=== PATIENT | male | born 1970 | race Caucasian/White ===

== ENCOUNTER 2018-10-11 13:25 | Inpatient (IN) | payer BC, OTHER ==
[~2018-10-11] VITALS: Ht 175.3 cm; Wt 83.9 kg
[~2018-10-11 13:25] MED LIST: CIPRO500 MG PO; FLAGYL500 MG PO; ZOLOFT100 MG PO
[2018-10-11 16:20] VITALS: BP 134/88
--- NOTE | 2018-10-11 17:43 | NUR ---
PT DIRECT ADMIT TO THE UNIT FORM DR PAGAN OFFICE - ADMITTED WITH DIVERTICULITIS. PT ORIENTED TO ROOM AND BEDSPACE - FOLDER GIVEN IN REGARDS TO HOSPITAL AND MENU. IV STARTED IN LEFT FA - FLUIDS AND IV AB'S GIVEN ORDERED. PATIENT WITH MIN PAIN AT THE PRESENT TIME RATE @ 2. NO CO'S OF NAUSEA. PATIENT UP AD KARENA IN ROOM - PILAR CLEAR LIQUIDS. NO CO'S AT THE PRESENT TIME.
[2018-10-11 23:39] VITALS: BP 110/64
[2018-10-12 03:11] VITALS: BP 104/56
[2018-10-12 04:59] LABS: MCHC 34.1 g/dL (28.0-37.0); MCV 96.9 fL (80.0-100.0); RBC 4.54 mil/uL (4.50-6.00); RDW 13.1 % (10.5-14.5); WBC 13.1 thou/uL (4.0-11.0)
[2018-10-12 05:09] LABS: CALCIUM 8.9 mg/dL (8.5-10.1); CREATININE 0.7 mg/dL (0.7-1.3); POTASSIUM 4.2 mmol/L (3.5-5.1)
--- NOTE | 2018-10-12 05:34 | NUR ---
ASSUMED PT CARE AT 1900 WITH NO SIGN OF DISTRESS NOTED IN PT. PT IS ALERT AND ORIENTED. ASSESSMENT DONE AND CHARTED. PT IS COMPLAINS OF ABDOMINAL PAIN. PAIN MEDS ADMINISTERED TO PT. SCHEDULED MEDS ADMINISTERED TO PT. NO SIGN OF DISTRESS NOTED IN PT. DENIES ANY FURTHER NEEDS AT THIS TIME.
[2018-10-12 07:07] VITALS: BP 100/50
--- NOTE | 2018-10-12 11:05 | H ---
[facility] [place] [address] HISTORY AND PHYSICAL Name: SHANIQUE AREVALO Room #: 208-P ADM IN M.R.#: [id number] Admission: 10/11/18 ������������������ Attend Phys: Jorge Bhatia MD Discharge: ������������������ Date of : 72 Report #: [id number] THIS REPORT FOR: //name// CC: Jorge Wallace DATE OF SERVICE: 10/11/2018 ADMITTING DIAGNOSIS: Acute diverticulitis, complicated with small abscess formation. HISTORY OF PRESENT ILLNESS: The patient is a 48-year-old, who for the last couple of weeks has been having abdominal pain. The patient was seen in the hospital in 04/2015 for diverticulitis. The patient, a couple of weeks ago, fell ill and was having pain more on the right lower side of the abdomen and then it moved around to the left side. Apparently, other people around him had stomach issue, so he thought that this was flu-like illness. The patient yesterday experienced increased pain in the left lower quadrant that was sharp in nature. No nausea, no vomiting. He did feel feverish, but did not have actual fever, no chills. The patient's bowels are looser. Last bowel movement was this morning. He is having pressure feeling and swelling in the lower part of the abdomen. The patient has been eating pretty well. No change in his appetite. He has never had a colonoscopy. There is family history of diverticulitis. Both his father and brother have had to have colon resection. The patient's CAT scan was done yesterday, which showed a pericolonic collection of 2.4 cm. I reviewed the film and I do not think it is a large diverticulum. I think it is extraluminal fluid with gas consistent with a small abscess. This is posteriorly, so likely in the retroperitoneum and sealed off. Because of the nature of the complicated attack, the patient is recommended to be hospitalized and have IV antibiotic treatment. PAST MEDICAL HISTORY: Healthy. He did have a previous attack 4 years ago. ALLERGIES: He is not allergic to anything. MEDICATIONS: He is not on any medication. No other history family history besides diverticular disease. The patient denies any heart, lung, diabetes, high blood pressure, kidney or liver disease. 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 He smokes 5-10 cigarettes a day and drinks 3-4 beers a day. REVIEW OF SYSTEMS: Unremarkable. PHYSICAL EXAMINATION: [facility] [address] [place] [address] HISTORY AND PHYSICAL Name: SHANIQUE AREVALO Room #: 208-P [facility] IN [facility].#: [id number] Admission: 10/11/18 ������������������ Attend Phys: Jorge Bhatia MD Discharge: ������������������ Date of : 72 Report #: [id number] GENERAL: The patient is alert and oriented, in no acute distress. HEENT: Normocephalic. Pharynx is clear. NECK: Soft and supple, no masses. LUNGS: Clear to auscultation. HEART: Regular rate and rhythm. No murmur or gallop. ABDOMEN: Soft. No diffuse tenderness. The patient does have fullness and tenderness in left lower quadrant. No guarding or rigidity. EXTREMITIES: No cyanosis, clubbing, edema. IMPRESSION AND PLAN: The patient with a history that is consistent with diverticulitis, kind of have been brewing for a couple of weeks. Likely, has a fluid collection or small abscess adjacent to the colon. This is probably retroperitoneal. I recommend that patient be admitted for IV antibiotic treatment. Once we get a good concentration of antibiotic, he should be able to be switched to oral medication. He did have a white count that is slightly elevated at 12,000 yesterday. We will repeat that in the morning. I think at this point, he can have a clear liquid. Zosyn was ordered. Pain medications ordered. IV fluids ordered. ��������������������������������������������� <ELECTRONICALLY SIGNED> ���������������������������������������� By: Jorge Bhatia MD ��������������������������������������������� 10/12/18 1105 10 40 Jorge Bhatia MD /nt
[2018-10-12 15:25] VITALS: BP 119/74
--- NOTE | 2018-10-12 16:59 | NUR ---
assessment as charted. meds as per mar - pt tyler clear liquid diet - no co's of nasuea, no co's of pain. up ad ariana in room and has ambulated on the unit. iv fluids cont as ordered. appears to be comfortable at the present time with no co's.
[2018-10-12 19:32] VITALS: BP 130/84
[2018-10-12 19:42] VITALS: BP 126/70
--- NOTE | 2018-10-13 03:58 | NUR ---
ASSUMED CARE AT 1900. PT AO X4. REPORTS ABDOMINAL PAIN. ALLEVIATED WITH PRN OXYCODONE. PT HAS ACTIVE BOWEL SOUNDS, REMAINS ON ABX. OTHER ASSESSMENTS DOCUMENTED. NO OTHER CONCERNS NOTED. WILL CONTINUE TO FOLLOW POC
[2018-10-13 04:55] VITALS: BP 119/71
[2018-10-13 04:56] LABS: HEMATOCRIT 40.7 % (42.0-52.0); HEMOGLOBIN 13.8 gm/dL (14.0-18.0); MCH 32.9 pg (26.0-34.0); MCHC 33.9 g/dL (28.0-37.0); MCV 97.1 fL (80.0-100.0); RBC 4.19 mil/uL (4.50-6.00); RDW 12.9 % (10.5-14.5); WBC 11.8 thou/uL (4.0-11.0)
[2018-10-13 07:26] VITALS: BP 131/80
[2018-10-13 20:25] VITALS: BP 118/82
--- NOTE | 2018-10-13 20:27 | NUR ---
PATIENT ALERT AND ORIENTED AND UP TO TAKE SHOWER TODAY. INDEPENDENT IN ADL'S AND ANTICIPATES DISCHARGE AROUND 1200 TOMORROW.
[2018-10-14 04:45] VITALS: BP 109/62
[2018-10-14 05:17] LABS: HEMATOCRIT 41.6 % (42.0-52.0); HEMOGLOBIN 14.4 gm/dL (14.0-18.0); MCH 33.4 pg (26.0-34.0); MCHC 34.6 g/dL (28.0-37.0); MCV 96.6 fL (80.0-100.0); RBC 4.3 mil/uL (4.50-6.00); RDW 12.9 % (10.5-14.5); WBC 8.5 thou/uL (4.0-11.0)
--- NOTE | 2018-10-14 05:19 | NUR ---
RECEIVED PT'S AT 1930; PT. ON BED; AOX4; NO C/O PAIN; DURING ASSESSMENT PT. ST. NOT HAVING PAIN; EDUCATED ABOUT FALL PREVENTION AND SCD's; ST. UNDERSTANDING; SCD'S ON UNTIL MIDNIGHT; REQUESTED TO BE OFF AFTER MIDNIGHT; ABLE TO AMBULATE WITHOUT AIDS; VS WNL; ASSESSMENT CHARGED; FOLLOWING POC; WILL PASS ON REPORT.
[2018-10-14 07:48] VITALS: BP 116/68
[2018-10-14] MEDS ORDERED: AUGMENTIN 875-1 EACH PO (11:21)
[2018-10-14 11:31] VITALS: BP 116/68
--- NOTE | 2018-10-14 13:42 | NUR ---
ASSUMED CARE OF PATIENT AT 0700. PATIENT IS RESTING COMFORTABLY IN BED, DENIES ANY PAIN. PATIENT WAS ADVANCED TO A SOFT/FIBER RESTRICTED DIET AND TOLERATING WELL. PATIENT RECEIVING IV ABX. ASSESSMENTS CHARTED. PATIENT GIVEN SCRIPTS AND INFORMATION SHEETS. PATIENT STATES THAT HE FEELS BETTER THAN HE DID UPON ADMISSION. DR. PAGAN ORDERED PATIENT'S DISCHARGE. PATIENT IV REMOVED. PATIENT TAKEN OUT VIA WHEELCHAIR AND DROVE HIMSELF HOME.
== END 2018-10-14 12:30 | disposition home or self-care (01) | DRG 392 ==
LOC: 2N 13:25
PROVIDERS: ADMIT Surgery
DX: K57.20 Diverticulitis of large intestine with perforation and abscess without bleeding (principal); F17.210 Nicotine dependence, cigarettes, uncomplicated; Z79.899 Other long term (current) drug therapy
CPT/HCPCS: 10797